=== PATIENT | female | born 1990 | race Two or more races ===

== ENCOUNTER 2017-09-16 10:07 | Emergency (ER) | payer MEDICAID ==
[~2017-09-16] VITALS: Ht 162.6 cm; Wt 75.0 kg
[2017-09-16 10:22] VITALS: BP 130/61; Ht 162.6 cm; Wt 75.0 kg
== END 2017-09-16 11:55 | disposition home or self-care (01) ==
LOC: ED 10:07
DX: S90.32XA Contusion of left foot, initial encounter (principal); I10 Essential (primary) hypertension; W20.8XXA Other cause of strike by thrown, projected or falling object, initial encounter; Y93.89 Activity, other specified; Y92.89 Other specified places as the place of occurrence of the external cause; Y99.8 Other external cause status